=== PATIENT | female | born 2005 | race African-American/Black ===

== ENCOUNTER 2025-04-19 12:59 | Emergency (ER) | payer OTHER ==
[~2025-04-19] VITALS: Ht 154.9 cm; Wt 107.0 kg
[2025-04-19 13:06] VITALS: O2SAT 98
[2025-04-19] MEDS: ACETAMINOPHEN 325MG TABLET PO ONE (13:53)
[2025-04-19] MEDS ORDERED: IBUP-1455 MT (15:06)
[2025-04-19 15:32] VITALS: BP 132/85; PULSE 81; RESP 16; TEMP 37; O2SAT 98
== END 2025-04-19 15:33 | disposition home or self-care (01) ==
LOC: ER 14:17
DX: S70.02XA Contusion of left hip, initial encounter (principal); S90.02XA Contusion of left ankle, initial encounter; Z91.013 Allergy to seafood; V09.9XXA Pedestrian injured in unspecified transport accident, initial encounter; Y93.89 Activity, other specified; Y92.410 Unspecified street and highway as the place of occurrence of the external cause; Y99.8 Other external cause status
CPT/HCPCS: 73502; 73610; 99284